=== PATIENT | male | born 1990 | race Caucasian/White ===

== ENCOUNTER 2018-01-03 23:16 | Inpatient (IN) | payer MEDICARE ==
[~2018-01-03] VITALS: Ht 190.5 cm; Wt 34.0 kg
[2018-01-03] MEDS ORDERED: FLUO-191 PO (23:38)
[2018-01-03] MEDS ORDERED: LORA2TAB2 PO (23:38)
[2018-01-03] MEDS ORDERED: ELVI1TAB3 PO (23:38)
[2018-01-03] MEDS ORDERED: ARIP400S IM (23:38)
[2018-01-03 23:47] LABS: BASOPHILS % (AUTO) 0.4 % (0.0-2.0); EOSINOPHILS % (AUTO) 0.3 % (1.0-6.0); HEMOGLOBIN 15.5 g/dL (13.5-17.5); LYMPHOCYTES # (AUTO) 2.4 K/uL (1.0-4.8); LYMPHOCYTES % (AUTO) 26.6 % (22.0-44.0); MEAN CORPUSCULAR HEMOGLOBIN 33.8 pg (26.0-34.0); MEAN CORPUSCULAR HGB CONC 35.2 G/dL (31.0-37.0); MEAN CORPUSCULAR VOLUME 96 fL (80-100); MONOCYTES # (AUTO) 0.6 K/uL (0.1-1.0); MONOCYTES % (AUTO) 6.4 % (2.0-9.0); NEUTROPHILS # (AUTO) 5.9 K/uL (1.8-7.7); NEUTROPHILS % (AUTO) 66.3 % (40.0-70.0); PLATELET COUNT (AUTO) 277 K/uL (150-450); RED BLOOD CELL COUNT(AUTO) 4.59 MIL/uL (4.50-5.90); RED CELL DISTRIBUTION WIDTH 12.9 % (11.5-14.5)
[2018-01-03 23:51] LABS: ANION GAP 11 mmol/L (8-16); CALCIUM, TOTAL 9.5 mg/dL (8.8-10.5); CARBON DIOXIDE 25 mmol/L (22-29); CHLORIDE 100 mmol/L (98-107); CREATININE 0.91 mg/dL (0.60-1.30); GLOMERULAR FILTR. RATE CALC > 60 mL/min (>60); GLUCOSE,RANDOM 95 mg/dL (70-110); POTASSIUM 3.7 mmol/L (3.5-5.1); SODIUM SERUM 136 mmol/L (136-145); UREA NITROGEN, BLOOD 12 mg/dL (7-18)
[2018-01-03 23:57] LABS: ALANINE AMINOTRANSFERASE 24 U/L (12-78); ALBUMIN 4.7 g/dL (3.4-5.0); ALKALINE PHOSPHATASE 66 U/L (46-116); ASPARTATE AMINOTRANSFERASE 24 U/L (15-37); BILIRUBIN,TOTAL 1.3 mg/dL (0.1-1.0); TOTAL PROTEIN, SERUM 8.2 g/dL (6.4-8.2)
[2018-01-04 00:23] LABS: AMPHET/METH SCREEN,URINE NEGATIVE (NEGATIVE); BARBITURATE SCREEN, URINE NEGATIVE (NEGATIVE); BENZODIAZEPINES SCREEN,URINE NEGATIVE (NEGATIVE); CANNABINOID SCREEN,URINE POSITIVE (NEGATIVE); COCAINE SCREEN,URINE POSITIVE (NEGATIVE); METHADONE SCREEN, URINE NEGATIVE (NEGATIVE); OPIATE SCREEN,URINE NEGATIVE (NEGATIVE)
[2018-01-04 00:24] LABS: PHENCYCLIDINE SCREEN,URINE NEGATIVE (NEGATIVE)
[2018-01-04] MEDS ORDERED: LORazepam 2 MG TABLET PO ONE (00:45)
[2018-01-04] MEDS ORDERED: HALOPERIDOL 5 MG TABLET PO PRN (01:00)
[2018-01-04] MEDS ORDERED: ZOLPIDEM TARTRATE 10 MG TABLET PO PRN (01:00)
[2018-01-04 08:29] VITALS: BP 105/69
[2018-01-04] MEDS ORDERED: ALBUTEROL SULFATE HFA 90 MCG/PUFF 8 GM INHALER IH PRN (10:30)
[2018-01-04] MEDS ORDERED: ONDANSETRON HCL 4 MG TABLET PO PRN (10:30)
[2018-01-04] MEDS ORDERED: BENZOCAINE/MENTHOL LOZENGE MM PRN (10:30)
[2018-01-04] MEDS ORDERED: BACITRACIN 28.4 GM OINTMENT TP PRN (10:30)
[2018-01-04] MEDS ORDERED: ACETAMINOPHEN 325 MG TABLET PO PRN (10:30)
[2018-01-04] MEDS ORDERED: CloNIDine HCL 0.1 MG TABLET PO PRN (10:30)
[2018-01-04] MEDS ORDERED: MAGNESIUM HYDROXIDE SUSPENSION 30 ML UDCUP PO PRN (10:30)
[2018-01-04] MEDS ORDERED: IBUPROFEN 600 MG TABLET PO PRN (10:30)
[2018-01-04] MEDS ORDERED: PETROLATUM,WHITE 71 GM JELLY TP PRN (10:30)
[2018-01-04] MEDS ORDERED: LOPERAMIDE HCL 2 MG CAPSULE PO PRN (10:30)
[2018-01-04] MEDS ORDERED: MAG HYDROX/AL HYDROX/SIMETH ES 30 ML SUSPENSION UDCUP PO PRN (10:30)
[2018-01-04] MEDS: LORazepam 2 MG TABLET PO PRN (12:02)
[2018-01-04 16:00] VITALS: BP 118/63
[2018-01-04 16:07] VITALS: BP 118/63
[2018-01-04] MEDS: ELVITEG/COB/EMTRI/TENOF ALAFEN 150-150-200-10MG TABLET PO SCH (16:28)
[2018-01-05 06:49] VITALS: BP 114/62
[2018-01-05] MEDS: ELVITEG/COB/EMTRI/TENOF ALAFEN 150-150-200-10MG TABLET PO SCH (07:01)
[2018-01-05] MEDS ORDERED: PNEUMOCOCCAL VACCINE POLYVALENT 0.5 ML VIAL [PPSV23] IM ONE (07:15)
[2018-01-05 08:37] VITALS: BP 109/74
[2018-01-05] MEDS: ARIPiprazole 10 MG TABLET PO SCH (08:42)
[2018-01-05] MEDS: FLUoxetine HCL 20 MG CAPSULE PO SCH (08:42)
[2018-01-05 10:14] LABS: FREE T4 (FREE THYROXINE) 1.09 ng/dL (0.76-1.46); THYROID STIMULATING HORMONE 0.1 uIU/mL (0.36-3.74)
[2018-01-05 16:09] VITALS: BP 116/81
[2018-01-05] MEDS: LORazepam 2 MG TABLET PO PRN (21:00)
[2018-01-06] MEDS: ELVITEG/COB/EMTRI/TENOF ALAFEN 150-150-200-10MG TABLET PO SCH (06:58)
[2018-01-06 07:19] VITALS: BP 120/86
[2018-01-06 08:44] VITALS: BP 113/60
[2018-01-06] MEDS: ARIPiprazole 10 MG TABLET PO SCH (08:46)
[2018-01-06] MEDS: FLUoxetine HCL 20 MG CAPSULE PO SCH (08:46)
[2018-01-06] MEDS ORDERED: ARIPiprazole ER SUSPENSION 400 MG PRE-FILLED DUAL CHAMBER SYRINGE IM SCH (11:00)
[2018-01-06 19:32] VITALS: BP 118/60
[2018-01-06 19:34] VITALS: BP 118/60
[2018-01-06] MEDS: LORazepam 2 MG TABLET PO PRN (20:22)
[2018-01-07] MEDS ORDERED: FLUO-191 PO (01:32)
[2018-01-07] MEDS ORDERED: ARIP10TA8 PO ×2 (01:32→10:25)
[2018-01-07] MEDS ORDERED: ARIP400S3 IM (01:32)
[2018-01-07] MEDS: ELVITEG/COB/EMTRI/TENOF ALAFEN 150-150-200-10MG TABLET PO SCH (06:39)
[2018-01-07 06:59] VITALS: BP 117/78
[2018-01-07 07:00] VITALS: BP 117/78
[2018-01-07 08:11] VITALS: BP 107/67
[2018-01-07] MEDS: FLUoxetine HCL 20 MG CAPSULE PO SCH (08:20)
[2018-01-07] MEDS: ARIPiprazole 10 MG TABLET PO SCH (08:20)
[2018-01-07 09:00] VITALS: BP 107/67
== END 2018-01-07 12:05 | disposition home or self-care (01) | DRG 885 ==
LOC: EMS 23:17 → B2X 01-04 01:13
PROC: 3E0234Z Introduction of Serum, Toxoid and Vaccine into Muscle, Percutaneous Approach (ICD-10-PCS; principal; 2018-01-05)
DX: F25.1 Schizoaffective disorder, depressive type (principal); R45.851 Suicidal ideations; Z59.0 Homelessness; F12.10 Cannabis abuse, uncomplicated; F14.10 Cocaine abuse, uncomplicated; F41.9 Anxiety disorder, unspecified; G47.00 Insomnia, unspecified; F17.210 Nicotine dependence, cigarettes, uncomplicated; Z91.19 Patient's noncompliance with other medical treatment and regimen; Z79.899 Other long term (current) drug therapy; Z91.5 Personal history of self-harm; Z23 Encounter for immunization
CPT/HCPCS: 84439; 84443; 90471; 99285; G0480; J0401; Q0162